=== PATIENT | female | born 1930 | race Caucasian/White ===

== ENCOUNTER 2021-01-04 15:37 | Emergency (ER) | payer MEDICARE, BC ==
[~2021-01-04] VITALS: Ht 154.9 cm; Wt 50.0 kg
[2021-01-04] MEDS ORDERED: furosemide 10 MG/1 ML 10ml inj IV ONE (16:05)
[2021-01-04] MEDS ORDERED: normal saline 1000ml 1,000 ML IV ONE (16:05)
[2021-01-04] MEDS ORDERED: diltiazem CD 300mg capsule (once-daily) PO ONE (16:05)
[2021-01-04] MEDS ORDERED: metoprolol tartrate 50mg tablet PO ONE (16:05)
[2021-01-04] MEDS ORDERED: diltiazem 5mg/ml 5ml inj. IV ONE (16:05)
[2021-01-04] MEDS ORDERED: digoxin 250mcg/ml 2ml ampule IV ONE (16:05)
[2021-01-04] MEDS ORDERED: diltiazem CD 120mg capsule (once-daily) PO ONE (16:45)
[2021-01-04] MEDS ORDERED: diltiazem CD 180mg cap (once-daily) PO ONE (16:45)
[2021-01-04 17:25] LABS: BASOPHILS # (AUTO) 0.1 X10'3 (0-0.2); BASOPHILS % (AUTO) 0.7 % (0-1); EOSINOPHILS # (AUTO) 0.1 X10'3 (0-0.9); EOSINOPHILS % (AUTO) 0.5 % (0-6); HEMATOCRIT 39.8 % (35.0-45.0); HEMOGLOBIN 13.3 g/dl (12.0-16.0); LYMPHOCYTES # (AUTO) 0.6 X10'3 (1.1-4.8); LYMPHOCYTES % (AUTO) 5.3 % (21-51); MEAN CORPUSCULAR HEMOGLOBIN 30.7 PG (27.0-31.0); MEAN CORPUSCULAR HGB CONC 33.6 g/dL (33.0-36.5); MEAN CORPUSCULAR VOLUME 91.5 FL (78-98); MEAN PLATELET VOLUME 8.4 FL (7.4-10.4); MONOCYTES # (AUTO) 0.7 X10'3 (0-0.9); MONOCYTES % (AUTO) 6.6 % (2-12); NEUTROPHILS # (AUTO) 9.8 X10'3 (1.8-7.7); NEUTROPHILS % (AUTO) 86.9 % (42-75); PLATELET COUNT 203 X10'3 (140-440); RED BLOOD COUNT 4.34 X10'6 (4.20-5.60); RED CELL DISTRIBUTION WIDTH 14.5 % (11.5-14.5); WHITE BLOOD COUNT 11.2 X10'3 (4.5-11.0)
[2021-01-04 17:39] LABS: ALANINE AMINOTRANSFERASE 23 U/L (12-78); ALBUMIN 3.5 G/DL (3.4-5.0); ALBUMIN/GLOBULIN RATIO 0.9 (1.1-1.5); ALKALINE PHOSPHATASE 114 IU/L (46-116); ANION GAP 8 (8-16); ASPARTATE AMINO TRANSFERASE 28 U/L (10-37); BILIRUBIN,TOTAL 1.3 MG/DL (0.1-1.0); BLOOD UREA NITROGEN 10 MG/DL (7-18); BUN/CREATININE RATIO 18.9 (6.6-38.0); CHLORIDE 100 MMOL/L (99-107); CREATININE 0.53 MG/DL (0.40-0.90); GLUCOSE 132 MG/DL (70-104); POTASSIUM 3.7 MMOL/L (3.5-5.1); SODIUM 138 MMOL/L (135-145); TOTAL CARBON DIOXIDE 29.7 MMOL/L (24-32); TOTAL PROTEIN 7.5 G/DL (6.4-8.2); eGFR > 90 ML/MIN
[2021-01-04] MEDS ORDERED: acetaminophen 325mg tablet PO ONE (18:30)
--- NOTE | 2021-01-04 19:39 | NUR ---
ASKED DR GASPAR ABOUT DISCHARGE, NO PAPERS
[2021-01-04] MEDS ORDERED: ketorolac tromethamine 15mg/ml inj. IM ONE (20:15)
[2021-01-04] MEDS ORDERED: cyclobenzaprine 10mg tablet PO ONE (20:15)
[2021-01-04] MEDS ORDERED: METH-360 PO (20:32)
--- NOTE | 2021-01-04 21:10 | NUR ---
PATIENT AMBULATED WNL WITH FFW 100 FEET DAUGHTER AT BEDSIDE AND ORDERED MHER MOTHER A WALKER FOR HOME DAUGHTER WILL BE WITH PATIENT TONIGHT: EXPLAINED SIDE EFFECTS OF FLEXERIL ESPECIALLY SEDATION. PATIENT WILL FOLLOW UP WITH DR CORTES PATIENT VERBALIZED UNDERSTANDING OF HOW TO TAKE ROBAXIN" DISCHARGE MEDICATION AND VERBALIZED THAT ROBAXIN IS SEDATING WELL
--- NOTE | 2021-01-04 21:13 | NUR ---
PATIENT IS ALSO GOING TO FOLLOW UP WITH DR SUBRAMANIAN, HER [employer]SP[employer]NAGING EDITOR
--- NOTE | 2021-01-04 21:14 | NUR ---
LEFT AC IV DC'D SITE CLEAR
[2021-01-04 21:20] VITALS: BP 160/77
== END 2021-01-04 21:24 | disposition home or self-care (01) ==
LOC: ER 15:37
DX: G89.29 Other chronic pain (principal); M54.5 Low back pain; I48.91 Unspecified atrial fibrillation; Z72.89 Other problems related to lifestyle; Z88.2 Allergy status to sulfonamides; Z79.899 Other long term (current) drug therapy
CPT/HCPCS: 36415; 71045; 80053; 80162; 83880; 84484; 85025; 93005; 96361; 96372; 96374; 96375; 99285; J1160; J1885; J7030; J3490

== ENCOUNTER 2022-03-09 23:35 | Emergency (ER) | payer MEDICARE, BC ==
[~2022-03-09] VITALS: Ht 152.4 cm; Wt 44.5 kg
[~2022-03-09 23:35] MED LIST: METH-360 PO
--- NOTE | 2022-03-10 00:19 | NUR ---
Note devora in ED - 03/10/22 at 0020 by HÉCTOR NOTIFIED MD. OF FALL X3 DAYS, BLOOD THINNERS, HEAD STRIKE WITH NO LOC.
--- NOTE | 2022-03-10 00:20 | NUR ---
NOTIFIED . OF FALL X3 DAYS AGO, BLOOD THINNERS, HEAD STRIKE WITH NO LOC.
--- NOTE | 2022-03-10 05:12 | NUR ---
DR CANAS AT BEDSIDE ASSESSING PT.
[2022-03-10 07:34] LABS: BASOPHILS % (AUTO) 0.4 % (0-1); EOSINOPHILS % (AUTO) 0 % (0-6); HEMOGLOBIN 11.5 g/dl (12.0-16.0); LYMPHOCYTES # (AUTO) 0.6 X10'3 (1.1-4.8); LYMPHOCYTES % (AUTO) 5.2 % (21-51); MEAN CORPUSCULAR HEMOGLOBIN 30.5 PG (27.0-31.0); MEAN CORPUSCULAR HGB CONC 32.8 g/dL (33.0-36.5); MEAN CORPUSCULAR VOLUME 92.8 FL (78-98); MEAN PLATELET VOLUME 8.3 FL (7.4-10.4); MONOCYTES # (AUTO) 0.5 X10'3 (0-0.9); MONOCYTES % (AUTO) 4.5 % (2-12); NEUTROPHILS # (AUTO) 9.7 X10'3 (1.8-7.7); NEUTROPHILS % (AUTO) 89.9 % (42-75); PLATELET COUNT 189 X10'3 (140-440); RED BLOOD COUNT 3.78 X10'6 (4.20-5.60); RED CELL DISTRIBUTION WIDTH 15.7 % (11.5-14.5); WHITE BLOOD COUNT 10.8 X10'3 (4.5-11.0)
[2022-03-10 07:35] LABS: ALANINE AMINOTRANSFERASE 16 U/L (12-78); ALBUMIN 3.5 G/DL (3.4-5.0); ALBUMIN/GLOBULIN RATIO 1.1 (1.1-1.5); ALKALINE PHOSPHATASE 87 IU/L (46-116); ANION GAP 11 (8-16); ASPARTATE AMINO TRANSFERASE 18 U/L (10-37); BILIRUBIN,TOTAL 1.1 MG/DL (0.1-1.0); BLOOD UREA NITROGEN 15 MG/DL (7-18); BUN/CREATININE RATIO 22.4 (6.6-38.0); CALCIUM 8.9 MG/DL (8.5-10.1); CHLORIDE 100 MMOL/L (99-107); CREATININE 0.67 MG/DL (0.40-0.90); GLUCOSE 142 MG/DL (70-104); POTASSIUM 3.5 MMOL/L (3.5-5.1); SODIUM 136 MMOL/L (135-145); TOTAL CARBON DIOXIDE 24.7 MMOL/L (24-32); TOTAL PROTEIN 6.7 G/DL (6.4-8.2); eGFR 83 ML/MIN
[2022-03-10 09:28] VITALS: BP 132/57
== END 2022-03-10 09:30 | disposition home or self-care (01) ==
LOC: ER 23:36
DX: S30.0XXA Contusion of lower back and pelvis, initial encounter (principal); S09.90XA Unspecified injury of head, initial encounter; M54.89 Other dorsalgia; I48.91 Unspecified atrial fibrillation; G89.29 Other chronic pain; Z72.89 Other problems related to lifestyle; Z60.2 Problems related to living alone; Z79.899 Other long term (current) drug therapy; W19.XXXA Unspecified fall, initial encounter; Y93.89 Activity, other specified; Y92.89 Other specified places as the place of occurrence of the external cause; Y99.8 Other external cause status
CPT/HCPCS: 36415; 70450; 71250; 74176; 80053; 85025; 99285